=== PATIENT | male | born 1980 | race Caucasian/White ===

== ENCOUNTER 2016-11-15 17:09 | Emergency (ER) | payer SELFPAY ==
[2016-11-15 17:26] VITALS: RESP 16; TEMP 98.2
--- NOTE | 2016-11-15 19:18 | EDPHY ---
H & P Stated Complaint: Slipped,fell 11/11;pain L post rib area;hurts to breathe/move HPI/ROS: CHIEF COMPLAINT: Fall, rib pain, shoulder pain HISTORY OF PRESENT ILLNESS: patient slipped and fell on the 11 of November. He landed on a hard surface. No head injury or loss of consciousness. He noted a sudden onset of pain on the left posterior ribs. Also some pain in the right shoulder. The pain was mild at 1st but worsened after he sneezed recently. Now he has pain with any inspiration or cough. There is no anterior chest pain. No chest pain with exertion. It only worsens as above. No radiating pain. No nausea vomiting or sweating. No recent travel or surgery. No abdominal, back or extremities injury otherwise. No other associated complaints or modifying factors. REVIEW OF SYSTEMS: Ten systems reviewed and are negative unless otherwise noted in the HPI General Appearance: Alert, no distress Head: normocephalic, atraumatic Eyes: Pupils equal and round, no conjunctival pallor or injection ENT, Mouth: Mucous membranes moist Neck: Normal inspection, supple, non-tender Respiratory: Lungs are clear to auscultation Cardiovascular: Regular rate and rhythm Gastrointestinal: Abdomen is soft and nontender Musculoskeletal: Tenderness to palpation of the left posterior ribs. There is no crepitus. Range of motion is intact in all 4 limbs. Neurovascular intact distally with brisk cap refill Back: non-tender, no bony abnormalities Neurological: A&O, nonfocal, normal gait Skin: Warm and dry, no rash Extremities: Nontender, no pedal edema Psychiatric: Mood and affect normal Differential Diagnoses: 1. Rib contusion 2. blunt trauma 3. Costochondritis 4. Right shoulder sprain MDM: mechanical fall with blunt trauma to the left posterior ribs and right shoulder. There is no crepitus. There is full range of motion all limbs without complication. There is tenderness to palpation of the left posterior ribs, muscle obtain a chest x-ray with rib focus. Auscultation is clear in all camara. No distress. 22:00 Re-evaluation Patient re-evaluated and remains hemodynamically stable and in no distress. I discussed the x-ray with the radiologist, and he notes no acute findings on the left side of the patient is having pain. There is a subacute/ acute anterior, right 3rd rib fracture. The patient says that he fractured this several months ago that may have re-injured on the fall today. It is in the area where he is having pain. There is no abnormality of vital signs. He is resting comfortably. Plan for discharge home with oral muscle relaxants, over- the-counter anti-inflammatories and ED precautions. The patient is comfortable with this plan and will follow up accordingly. This patient was independently evaluated without the aide of supervising physician. - Personal History Current Tetanus Diphtheria and Acellular Pertussis (TDAP): Yes - Medical/Surgical History Other PMH: healthy - Social History Smoking Status: Never smoked Constitutional: Initial Vital Signs Temperature (C) 98.2 F 11/15/16 17:15 Heart Rate 98 11/15/16 17:15 Respiratory Rate 16 11/15/16 17:15 Blood Pressure 107/71 11/15/16 17:15 O2 Sat (%) 97 11/15/16 17:15 O2 Delivery Mode Room Air Allergies/Adverse Reactions: No Known Allergies Allergy (Unverified 11/15/16 17:25) Home Medications: Medication Instructions Recorded Cyclobenzaprine [Flexeril 10 MG 10 mg PO TID PRN #15 tab 11/15/16 (*)] Departure - Departure Disposition: Home, Routine, Self-Care Clinical Impression: Blunt trauma Contusion of rib on left side Qualifiers: Encounter type: initial encounter Qualifier Code: (S20.212A) Contusion of left front wall of thorax, initial encounter Rib fracture Qualifiers: Encounter type: initial encounter Rib fracture type: single rib Fracture type: closed Laterality: right Qualifier Code: (S22.31XA) Fracture of one rib, right side, initial encounter for closed fracture Condition: Good Instructions: Rib Fracture (ED), Muscle Strain (ED) Referrals: NONE *PRIMARY CARE P,. [Primary Care Provider] - As per Instructions Prescriptions: Cyclobenzaprine [Flexeril 10 MG (*)] 10 mg PO TID PRN #15 tab PRN Reason: Spasms
--- NOTE | 2016-11-15 22:04 | DX ---
Bilateral rib series - 9 views total dated November 15, 2016 Indication: Posterior left and anterior right rib pain. Evaluate for rib fractures. Technique: PA chest and oblique views of the right and left hemithorax with BBs placed over the site of pain. Findings: A subacute anterior right third rib fracture has minimal callus formation. No other rib fra ctures. Specifically, no posterior left rib fracture. The lungs are well aerated and clear. No pneumothorax, consolidation or effusion. The heart size is n ormal. Impression: 1. Subacute anterior nondisplaced right third rib fracture. 2. No posterior left rib fracture. 3. Clear lungs. No pneumothorax. Comment: Results were discussed with Dr. Steve Yo.
[2016-11-15 22:32] VITALS: BP 124/54; PULSE 75; O2SAT 95
== END 2016-11-15 22:43 | disposition home or self-care (01) ==
DX: S22.31XA Fracture of one rib, right side, initial encounter for closed fracture (principal); S20.212A Contusion of left front wall of thorax, initial encounter; W01.0XXA Fall on same level from slipping, tripping and stumbling without subsequent striking against object, initial encounter; Y93.89 Activity, other specified